=== PATIENT | male | born 1970 | race Caucasian/White ===

== ENCOUNTER 2019-04-23 01:39 | Observation (INO) | payer OTHER ==
[2019-04-23] MEDS ORDERED: Ondansetron 4 MG/2 ML SDV IVPUSH ONE (01:43)
[2019-04-23] MEDS ORDERED: Sodium Chloride 0.9% 1,000 ML IV ONE (01:43)
[2019-04-23] MEDS ORDERED: HYDROmorphone 1 MG/ML Syringe IVPUSH ONE ×2 (01:44→02:05)
--- NOTE | 2019-04-23 01:59 | EDM.PDOC ---
"ED HPI GENERAL MEDICAL PROBLEM - General Chief Complaint: Abdominal Pain Stated Complaint: RIGHT SIDE AROUND STOMACH AREA Time Seen by Provider: 04/23/19 01:45 Source of Information: Reports: Patient History Limitations: Reports: No Limitations - History of Present Illness INITIAL COMMENTS - FREE TEXT/NARRATIVE: ED with c/o severe right sided abdominal pain with onset few hours ago. Nausea, vomited x one on presentation. No diarrhea, Pain constant. Variety of foods for supper. Primary care in [facility]. Onset: Today Right Abdomen Pain Score (Numeric/FACES): 8 - Related Data Allergies Allergy/AdvReac Type Severity Reaction Status Date / Time poison mohsen extract Allergy Cannot Verified 04/23/19 01:48 Remember ED ROS GENERAL - Review of Systems Review Of Systems: See Below Constitutional: Reports: Fever, Chills HEENT: Reports: No Symptoms Respiratory: Reports: No Symptoms Cardiovascular: Reports: No Symptoms GI/Abdominal: Reports: Abdominal Pain, Nausea, Vomiting. Denies: Diarrhea : Reports: No Symptoms Musculoskeletal: Reports: No Symptoms Skin: Reports: No Symptoms Neurological: Reports: No Symptoms Psychiatric: Reports: No Symptoms ED EXAM, GI/ABD - Physical Exam Exam: See Below Exam Limited By: Language Barrier General Appearance: Alert, Moderate Distress Ears: Normal External Exam Nose: Normal Inspection Throat/Mouth: Normal Inspection Head: Atraumatic, Normocephalic Neck: Normal Inspection Respiratory/Chest: No Respiratory Distress, Lungs Clear, Normal Breath Sounds Cardiovascular: Normal Peripheral Pulses, Regular Rate, Rhythm GI/Abdominal Exam: Soft, Tender (RUQ R mid abdomen to lateral below ribs), Abnormal Bowel Sounds (hypoactive), Other (small emesis undigested food). No: Distended, Guarding Back Exam: Normal Inspection Extremities: Normal Inspection, Normal Range of Motion Neurological: Alert, Oriented, Normal Cognition, No Motor/Sensory Deficits Psychiatric: Normal Affect Skin Exam: Warm, Dry, Intact, Pallor. No: Diaphoretic Course - Vital Signs Last Recorded V/S: Last Vital Signs Temp 98.7 F 04/23/19 01:42 Pulse 89 04/23/19 01:42 Resp 19 04/23/19 01:42 BP 143/98 H 04/23/19 01:42 Pulse Ox 99 04/23/19 01:42 - Orders/Labs/Meds Orders: Active Orders 24 hr Category Date Time Status Abdomen Pelvis w Cont [CT] Urgent Exams 04/23/19 02:02 Ordered UA RFX DARYL AND CULT IF INDIC [URIN] Urgent Lab 04/23/19 01:45 Ordered Sodium Chloride 0.9% [Normal Saline] 1,000 ml Med 04/23/19 01:43 Active IV .BOLUS Medication Orders Sodium Chloride (Normal Saline) 1,000 mls @ 500 mls/hr IV .BOLUS ONE Stop: 04/23/19 03:42 Last Admin: 04/23/19 01:50 Dose: 500 mls/hr Labs: Laboratory Tests 04/23/19 04/23/19 04/23/19 Range/Units 01:47 01:47 01:47 WBC 12.7 H (5.0-10.0) 10^3/uL RBC 4.78 (4.6-6.2) 10^6/uL Hgb 14.2 (14.0-18.0) g/dL Hct 42.4 (40.0-54.0) % MCV 88.7 (80-100) fL MCH 29.7 (27.0-34.0) pg MCHC 33.5 (33.0-35.0) g/dL Plt Count 304 (150-450) 10^3/uL Neut % (Auto) 77.4 H (42.2-75.2) % Lymph % (Auto) 15.7 L (20.5-50.1) % [place] % (Auto) 6.3 (2-8) % Eos % (Auto) 0.4 L (1.0-3.0) % Baso % (Auto) 0.2 (0.0-1.0) % Sodium 137 (135-145) mmol/L Potassium 4.5 (3.6-5.0) mmol/L Chloride 102 (101-111) mmol/L Carbon Dioxide 25.0 (21.0-31.0) mmol/L Anion Gap 14.5 BUN 18 (7-18) mg/dL Creatinine 1.1 (0.6-1.3) mg/dL Est Cr Clr Drug Dosing 94.96 mL/min Estimated GFR (MDRD) > 60 BUN/Creatinine Ratio 16.36 Glucose 142 H (74-105) mg/dL Lactic Acid 1.7 (0.5-2.0) mmol/L Calcium 8.9 (8.4-10.2) mg/dl Total Bilirubin 1.0 (0.2-1.0) mg/dL AST 23 (10-42) IU/L ALT 22 (10-60) IU/L Alkaline Phosphatase 75 (42-121) IU/L Total Protein 7.8 (6.7-8.2) g/dl Albumin 4.3 (3.2-5.5) g/dl Globulin 3.5 Albumin/Globulin Ratio 1.23 Amylase 45 (28-100) U/L Lipase 34 (22-51) U/L Meds: Medications Generic Name Dose Route Start Last Admin Trade Name Freq PRN Reason Stop Dose Admin Sodium Chloride 1,000 mls @ 500 mls/hr 04/23/19 01:43 04/23/19 01:50 Normal Saline IV 04/23/19 03:42 500 mls/hr .BOLUS ONE Administration Discontinued Medications Generic Name Dose Route Start Last Admin Trade Name Freq PRN Reason Stop Dose Admin Hydromorphone HCl 1 mg 04/23/19 01:44 04/23/19 01:51 Dilaudid IVPUSH 04/23/19 01:45 1 mg ONETIME ONE Administration Hydromorphone HCl 1 mg 04/23/19 02:05 04/23/19 02:32 Dilaudid IVPUSH 04/23/19 02:06 1 mg ONETIME ONE Administration Iopamidol 100 ml 04/23/19 02:03 04/23/19 02:11 Isovue-300 (61%) IVPUSH 04/23/19 02:04 100 ml ONETIME ONE Administration Ondansetron HCl 4 mg 04/23/19 01:43 04/23/19 01:51 Zofran IVPUSH 04/23/19 01:44 4 mg ONETIME ONE Administration - Radiology Interpretation Free Text/Narrative:: [facility] Final Radiology Report Call: [phone] assistance Online chat: [email or web address] Name: SOLA ARMSTRONG Age: 49Years M Date: 04/23/2019 SSN: -- : [id number] Study: CT ABDOMEN/PELVIS W Requesting Physician: REINALDO CHIU Images: [id number] Addl Studies: Provided Clinical History: Contrast: With Contrast Medium: [id number] Contrast Amount: 100 mL Contrast Method: lac Page 1 of 2 PROCEDURE INFORMATION: Exam: CT Abdomen And Pelvis With Contrast Exam date and time: 04/23/2019 2:25 AM Age: 49 years old Clinical indication: Vomiting and other: Right sided pain--wbc 12,700 TECHNIQUE: Imaging protocol: Computed tomography of the abdomen and pelvis with intravenous contrast. Radiation optimization: All CT scans at this facility use at least one of these dose optimization techniques: automated exposure control; mA and/or kV adjustment per patient size (includes targeted exams where dose is matched to clinical indication); or iterative reconstruction. Contrast material: [id number]; Contrast volume: 100 ml; Contrast route: LAC; COMPARISON: No relevant prior studies available. FINDINGS: Liver: Normal. No mass. Gallbladder and bile ducts: Gallbladder distension but no definite gallstones identified. Pancreas: Normal. No ductal dilation. Spleen: Normal. No splenomegaly. Adrenals: Normal. No mass. Kidneys and ureters: Multiple cortical irregularities to both kidneys consistent with chronic scarring. Stomach and bowel: Gastric distension with content consistent with an ileus. Appendix: Normal appendix right lower quadrant. Intraperitoneal space: Unremarkable. No free air. No significant fluid collection. Vasculature: Unremarkable. No abdominal aortic aneurysm. Lymph nodes: Unremarkable. No enlarged lymph nodes. SOLA ARMSTRONG | Final Radiology Report CONFIDENTIALITY STATEMENT This report is intended only for use by the referring physician, and only in accordance with law. If you received this in error, call [phone]. Page 2 of 2 Bladder: Unremarkable as visualized. Reproductive: Unremarkable as visualized. Bones/joints: Unremarkable. No acute fracture. Soft tissues: Unremarkable. IMPRESSION: 1. Gastric distension with content consistent with an ileus. Please correlate clinically for gastroenteritis. 2. Gallbladder distension but no definite gallstones identified. Gallbladder ultrasound may be helpful in this patient 3. Multiple cortical irregularities to both kidneys consistent with chronic scarring. 4. Normal appendix right lower quadrant. Thank you for allowing us to participate in the care of your patient. Dictated and Authenticated by: Pato Ellington MD - Re-Assessments/Exams Free Text/Narrative Re-Assessment/Exam: 04/23/19 03:[address] Jordi HEMPHILL Hospitalist. Admit Observation. Nausea improved. Pain 05/28. 04/23/19 03:27 Departure - Departure Time of Disposition: 03:28 Disposition: Refer to Observation Condition: Good Clinical Impression: Ileus, Cholecystitis - Discharge Information *PRESCRIPTION DRUG MONITORING PROGRAM REVIEWED*: No *COPY OF PRESCRIPTION DRUG MONITORING REPORT IN PATIENT MIGUE: No Forms: ED Department Discharge Sepsis Event Note - Evaluation Sepsis Screening Result: No Definite Risk - Focused Exam Vital Signs: Vital Signs Temp Pulse Resp BP Pulse Ox 04/23/19 01:42 98.7 F 89 19 143/98 H 99 Date Exam was Performed: 04/23/19 Time Exam was Performed: 03:14 - My Orders Last 24 Hours: My Active Orders 04/23/19 01:43 Sodium Chloride 0.9% [Normal Saline] 1,000 ml IV .BOLUS 04/23/19 01:45 UA RFX DARYL AND CULT IF INDIC [URIN] Urgent 04/23/19 02:02 Abdomen Pelvis w Cont [CT] Urgent - Assessment/Plan Last 24 Hours: My Active Orders 04/23/19 01:43 Sodium Chloride 0.9% [Normal Saline] 1,000 ml IV .BOLUS 04/23/19 01:45 UA RFX DARYL AND CULT IF INDIC [URIN] Urgent 04/23/19 02:02 Abdomen Pelvis w Cont [CT] Urgent"
[2019-04-23] MEDS ORDERED: Iopamidol 612 MG/ML 100 ML Bottle IVPUSH ONE (02:03)
[2019-04-23 02:13] LABS: ANION GAP 14.5; CHLORIDE,CL 102 mmol/L (101-111); SODIUM,NA 137 mmol/L (135-145)
[2019-04-23] MEDS ORDERED: Sodium Chloride 0.9% 10 ML Syringe FLUSH PRN (04:02)
[2019-04-23] MEDS ORDERED: Acetaminophen 325 MG Tab PO PRN (04:02)
[2019-04-23] MEDS ORDERED: Zolpidem 5 MG Tab PO PRN (04:02)
[2019-04-23] MEDS ORDERED: oxyCODONE 5 MG Tab PO PRN (04:02)
[2019-04-23] MEDS ORDERED: Ondansetron 4 MG Tab.DIS PO PRN (04:02)
[2019-04-23] MEDS ORDERED: Ondansetron 4 MG/2 ML SDV IVPUSH PRN (04:02)
[2019-04-23] MEDS ORDERED: Morphine 2 MG/ML Syringe IVPUSH PRN (04:02)
[2019-04-23] MEDS ORDERED: Lactated Ringers 1,000 ML IV SCH (04:15)
--- NOTE | 2019-04-23 04:15 | PCM.HP ---
H&P History of Present Illness - General Date of Service: 04/23/19 Admit Problem/Dx: Admission Diagnosis/Problem Admission Diagnosis/Problem Ileus Source of Information: Patient History Limitations: Reports: No Limitations - History of Present Illness Initial Comments - Free Text/Narative: Gerry Siddiqui is a 49 y.o male with a medical history of hypertension and hyperlipidemia who presented with abdominal pain, nausea and vomiting. Patient was out in his fish house yesterday evening, watching the [employer] with his friends, when he developed sudden epigastric and RUQ abdominal pain and nausea. Pain was constant and non-radiating. He reports having similar right sided abdominal and low back pain occasionally in the past, that would last a few hours and resolve spontaneously. He had an ultrasound for kidney stone 3 months ago that was negative. His symptoms progressed through the night and he thought he had chills. He presented to the ED, where he had one episode of emesis. He denies fever, diarrhea (last BM was yesterday x2 and formed), dysuria, chest pain or shortness of breath. He reported eating "a bunch of stuff ", however, no other person who ate the same food has been sick. Vital signs were BP of 143/98 and pulse of 113. He was afebrile. Labs significant for leukocytosis of 12.7, otherwise rest of CBC, CMP, lipase, and LA were unremarkable. CT scan showed gallbladder distension with no definite gallstones and gastric distension with content consistent with ileus. He received pain meds and zofran. Right Abdomen Pain Score (Numeric/FACES): 8 - Related Data Allergies/Adverse Reactions: Allergies Allergy/AdvReac Type Severity Reaction Status Date / Time poison mohsen extract Allergy Cannot Verified 04/23/19 01:48 Remember Home Medications: Home Meds Aspirin [Halfprin] 81 mg PO BEDTIME 04/23/19 [History] Lisinopril [Zestril] 40 mg PO BEDTIME 04/23/19 [History] atorvaSTATin [Lipitor] 10 mg PO BEDTIME 04/23/19 [History] Past Medical History Cardiovascular History: Reports: High Cholesterol, Hypertension Social & Family History - Family History Family Medical History: Noncontributory - Tobacco Use Smoking Status *Q: Never Smoker - Caffeine Use Caffeine Use: Reports: Coffee, Soda, Tea - Alcohol Use Date of Last Drink: 04/22/19 - Recreational Drug Use Recreational Drug Use: No H&P Review of Systems - Review of Systems: Review Of Systems: See Below General: Reports: Chills, Diaphoresis HEENT: Reports: No Symptoms Pulmonary: Reports: No Symptoms Cardiovascular: Reports: No Symptoms Gastrointestinal: Reports: Abdominal Pain, Nausea, Vomiting Genitourinary: Reports: No Symptoms Musculoskeletal: Reports: No Symptoms Skin: Reports: No Symptoms Psychiatric: Reports: No Symptoms Neurological: Reports: No Symptoms Hematologic/Lymphatic: Reports: No Symptoms Immunologic: Reports: No Symptoms Exam - Exam Exam: See Below - Vital Signs Vital Signs: Last Vital Signs Temp 98.7 F 04/23/19 01:42 Pulse 89 04/23/19 01:42 Resp 19 04/23/19 01:42 BP 143/98 H 04/23/19 01:42 Pulse Ox 99 04/23/19 01:42 Weight: 270 lb - Exam General: Alert, Oriented, 4 HEENT: PERRLA, Hearing Intact, Mucosa Moist & [place], Nares Patent, Normal Nasal Septum, Posterior Pharynx Clear, Conjunctiva Clear, EOMI, EACs Clear, TMs Clear Neck: Supple, Trachea Midline, 2 Lungs: Clear to Auscultation, Normal Respiratory Effort Cardiovascular: Regular Rate, Regular Rhythm GI/Abdominal Exam: Normal Bowel Sounds, Soft, No Organomegaly, No Distention, No Mass, Tender (RUQ and epigastric tenderness diminished due to recent administration of pain meds) (Male) Exam: Deferred Rectal (Males) Exam: Deferred Back Exam: Normal Inspection, Full Range of Motion, NT Extremities: Normal Inspection, Normal Range of Motion, Non-Tender, No Pedal Edema, Normal Capillary Refill Skin: Warm, Dry, Intact Neurological: Cranial Nerves Intact, Reflexes Equal Bilateral Neuro Extensive - Mental Status: Alert, Oriented x3, Normal Mood/Affect, Normal Cognition Neuro Extensive - Motor, Sensory, Reflexes: CN II-XII Intact, Normal Gait, Normal Reflexes Psychiatric: Alert, Normal Affect, Normal Mood - Patient Data Lab Results Last 24 hrs: Laboratory Results - last 24 hr 04/23/19 04/23/19 04/23/19 Range/Units 01:47 01:47 01:47 WBC 12.7 H (5.0-10.0) 10^3/uL RBC 4.78 (4.6-6.2) 10^6/uL Hgb 14.2 (14.0-18.0) g/dL Hct 42.4 (40.0-54.0) % MCV 88.7 (80-100) fL MCH 29.7 (27.0-34.0) pg MCHC 33.5 (33.0-35.0) g/dL Plt Count 304 (150-450) 10^3/uL Neut % (Auto) 77.4 H (42.2-75.2) % Lymph % (Auto) 15.7 L (20.5-50.1) % [place] % (Auto) 6.3 (2-8) % Eos % (Auto) 0.4 L (1.0-3.0) % Baso % (Auto) 0.2 (0.0-1.0) % Sodium 137 (135-145) mmol/L Potassium 4.5 (3.6-5.0) mmol/L Chloride 102 (101-111) mmol/L Carbon Dioxide 25.0 (21.0-31.0) mmol/L Anion Gap 14.5 BUN 18 (7-18) mg/dL Creatinine 1.1 (0.6-1.3) mg/dL Est Cr Clr Drug Dosing 94.96 mL/min Estimated GFR (MDRD) > 60 BUN/Creatinine Ratio 16.36 Glucose 142 H (74-105) mg/dL Lactic Acid 1.7 (0.5-2.0) mmol/L Calcium 8.9 (8.4-10.2) mg/dl Total Bilirubin 1.0 (0.2-1.0) mg/dL AST 23 (10-42) IU/L ALT 22 (10-60) IU/L Alkaline Phosphatase 75 (42-121) IU/L Total Protein 7.8 (6.7-8.2) g/dl Albumin 4.3 (3.2-5.5) g/dl Globulin 3.5 Albumin/Globulin Ratio 1.23 Amylase 45 (28-100) U/L Lipase 34 (22-51) U/L Result Diagrams: 04/23/19 01:47 04/23/19 01:47 Problem List Initiated/Reviewed/Updated: Yes Orders Last 24hrs: Active Orders 24 hr Category Date Time Status Admission Diagnosis [ADT] Stat ADT 04/23/19 03:21 Ordered Admission Status [Patient Status] [ADT] Routine ADT 04/23/19 03:21 Active Patient Status [ADT] Routine ADT 04/23/19 04:02 Ordered Oxygen Therapy [RC] PRN Care 04/23/19 04:02 Ordered Up ad Meaghan [RC] ASDIRECTED Care 04/23/19 04:02 Ordered VTE/DVT Education [RC] PER UNIT ROUTINE Care 04/23/19 04:02 Ordered Vital Signs [RC] Q4H Care 04/23/19 04:02 Ordered Nothing per Oral Now Diet [DIET] Diet 04/23/19 Breakfast Ordered Abdomen Pelvis w Cont [CT] Urgent Exams 04/23/19 02:02 Taken CBC W/O DIFF,HEMOGRAM [HEME] Routine Lab 04/23/19 10:00 Ordered COMPREHENSIVE METABOLIC PN,CMP [CHEM] Routine Lab 04/23/19 10:00 Ordered MAGNESIUM [CHEM] Routine Lab 04/23/19 10:00 Ordered UA RFX DARYL AND CULT IF INDIC [URIN] Urgent Lab 04/23/19 01:45 Ordered Acetaminophen [Tylenol] Med 04/23/19 04:02 Ordered 650 mg PO Q4H PRN Enoxaparin [Lovenox] Med 04/23/19 09:00 Ordered 30 mg SUBCUT DAILY Lactated Ringers @ 125 MLS/HR(1000ml) Med 04/23/19 04:15 Ordered Lactated Ringers [Ringers, Lactated] 1,000 ml IV ASDIRECTED Morphine Med 04/23/19 04:02 Ordered 2 mg IVPUSH Q2H PRN Ondansetron [Zofran ODT] Med 04/23/19 04:02 Ordered 4 mg PO Q4H PRN Ondansetron [Zofran] Med 04/23/19 04:02 Ordered 4 mg IVPUSH Q4H PRN Sodium Chloride 0.9% [Saline Flush] Med 04/23/19 04:02 Ordered 10 ml FLUSH ASDIRECTED PRN Zolpidem [Ambien] Med 04/23/19 04:02 Ordered 5 mg PO BEDTIME PRN oxyCODONE Med 04/23/19 04:02 Ordered 5 mg PO Q4H PRN Saline Lock Insert [OM.PC] Routine Oth 04/23/19 04:02 Ordered Resuscitation Status Routine Resus Stat 04/23/19 04:02 Ordered Medication Orders Acetaminophen (Tylenol) 650 mg PO Q4H PRN PRN Reason: Pain (Mild 1-3)/fever Enoxaparin Sodium (Lovenox) 30 mg SUBCUT DAILY EMILIANA Lactated Ringer's (Ringers, Lactated) 1,000 mls @ 125 mls/hr IV ASDIRECTED EMILIANA Morphine Sulfate (Morphine) 2 mg IVPUSH Q2H PRN PRN Reason: Pain (severe 7-10) Ondansetron HCl (Zofran Odt) 4 mg PO Q4H PRN PRN Reason: nausea, able to take PO Ondansetron HCl (Zofran) 4 mg IVPUSH Q4H PRN PRN Reason: Nausea/Vomiting Oxycodone HCl (Oxycodone) 5 mg PO Q4H PRN PRN Reason: Pain (moderate 4-6) Sodium Chloride (Saline Flush) 10 ml FLUSH ASDIRECTED PRN PRN Reason: Keep Vein Open Zolpidem Tartrate (Ambien) 5 mg PO BEDTIME PRN PRN Reason: Sleep Assessment/Plan Comment:: Ileus Probable gastroenteritis Dilated gall bladder Patient presented with acute onset RUQ and epigastric abdominal pain and emesis. Labs showing leukocytosis of 12.7, otherwise normal. Lipase and LFTs within normal limits. CT scan suggesting ileus and gallbladder distension. At this point suspect viral developing gastroenteritis vs/leading to ileus. Other differentials to watch out for include cholecystitis/cholangitis, pancreatitis and pyelonephritis, though at this point, labs do not support. Dilated gallbladder could be due to emesis and intraluminal process. - Patient opting for minimal and staged care as needed for now - If repeat emesis, will pass NGT to LIS - Repeat CBC, CMP and Magnesium in late morning - Monitor for fever to commence antibiotics micaela - NPO for now - MIVF LR at 125 cc/h - Consider US of gallbladder to evaluate for radiolucent stones and sludge Hypertension - Hold lisinopril for now - Blood pressure within acceptable limits Hyperlipidemia - Hold atorvastatin for now
[2019-04-23] MEDS ORDERED: Enoxaparin 40 MG/0.4 ML Syringe SUBCUT SCH (09:00)
[2019-04-23 10:39] LABS: ANION GAP 12.2; CHLORIDE,CL 105 mmol/L (101-111); SODIUM,NA 138 mmol/L (135-145)
--- NOTE | 2019-04-23 12:39 | PCM.DCSUM1 ---
Discharge Summary - Hospital Course Free Text/Narrative:: Gerry Siddiqui is a 49 y.o male with a medical history of hypertension and hyperlipidemia who presented with sudden epigastric and RUQ abdominal pain, nausea and vomiting x1. Vital signs were unremarkable. Initial labs significant for leukocytosis of 12.7, otherwise rest of CBC, CMP, lipase, and LA were unremarkable. CT scan showed gallbladder distension with no definite gallstones and gastric distension with content consistent with ileus. His symptoms improved with pain meds, IVF and zofran. he received no antibiotics. Patient tolerated regular diet and was passing gas prior to discharge. Repeat labs showed resolution of leukocytosis and no other significant abnormality. Patient probably had gastroenteritis with ileus. Unsure what to make of his gallbladder distension in the setting of history acute on chronic RUQ with normal LFTs and lipase. I discussed with patient, and per his wishes, he will follow up with his primary care doctor to consider a RUQ ultrasound. He will report to an ED if symptoms return. Discharge diagnoses Ileus Probable gastroenteritis Dilated gall bladder Hypertension Hyperlipidemia - Discharge Data Discharge Date: 04/23/19 Discharge Disposition: Home, Self-Care 01 Condition: Good - Referral to Home Health Primary Care Physician: PCP Not In Area - Discharge Plan *PRESCRIPTION DRUG MONITORING PROGRAM REVIEWED*: Not Applicable *COPY OF PRESCRIPTION DRUG MONITORING REPORT IN PATIENT MIGUE: Not Applicable Home Medications: Home Meds Aspirin [Halfprin] 81 mg PO BEDTIME 04/23/19 [History] Lisinopril [Zestril] 40 mg PO BEDTIME 04/23/19 [History] atorvaSTATin [Lipitor] 10 mg PO BEDTIME 04/23/19 [History] Oxygen Therapy Mode: Room Air Patient Handouts: Ileus - Discharge Summary/Plan Comment DC Time >30 min.: No - General Info Functional Status: Reports: Pain Controlled - Review of Systems General: Reports: No Symptoms HEENT: Reports: No Symptoms Pulmonary: Reports: No Symptoms Cardiovascular: Reports: No Symptoms Gastrointestinal: Reports: No Symptoms Genitourinary: Reports: No Symptoms Musculoskeletal: Reports: No Symptoms Skin: Reports: No Symptoms Neurological: Reports: No Symptoms Psychiatric: Reports: No Symptoms - Patient Data Vitals - Most Recent: Last Vital Signs Temp 97.6 F 04/23/19 11:51 Pulse 75 04/23/19 11:51 Resp 20 04/23/19 11:51 BP 154/89 H 04/23/19 11:51 Pulse Ox 98 04/23/19 11:51 Weight - Most Recent: 270 lb I&O - Last 24 hours: Intake & Output 04/22/19 04/23/19 04/23/19 22:59 06:59 14:59 Output Total 1000 Balance -1000 Lab Results - Last 24 hrs: Laboratory Results - last 24 hr 04/23/19 04/23/19 04/23/19 Range/Units 01:47 01:47 01:47 WBC 12.7 H (5.0-10.0) 10^3/uL RBC 4.78 (4.6-6.2) 10^6/uL Hgb 14.2 (14.0-18.0) g/dL Hct 42.4 (40.0-54.0) % MCV 88.7 (80-100) fL MCH 29.7 (27.0-34.0) pg MCHC 33.5 (33.0-35.0) g/dL Plt Count 304 (150-450) 10^3/uL Neut % (Auto) 77.4 H (42.2-75.2) % Lymph % (Auto) 15.7 L (20.5-50.1) % [place] % (Auto) 6.3 (2-8) % Eos % (Auto) 0.4 L (1.0-3.0) % Baso % (Auto) 0.2 (0.0-1.0) % Sodium 137 (135-145) mmol/L Potassium 4.5 (3.6-5.0) mmol/L Chloride 102 (101-111) mmol/L Carbon Dioxide 25.0 (21.0-31.0) mmol/L Anion Gap 14.5 BUN 18 (7-18) mg/dL Creatinine 1.1 (0.6-1.3) mg/dL Est Cr Clr Drug Dosing 94.96 mL/min Estimated GFR (MDRD) > 60 BUN/Creatinine Ratio 16.36 Glucose 142 H (74-105) mg/dL Lactic Acid 1.7 (0.5-2.0) mmol/L Calcium 8.9 (8.4-10.2) mg/dl Magnesium (1.8-2.5) mg/dL Total Bilirubin 1.0 (0.2-1.0) mg/dL AST 23 (10-42) IU/L ALT 22 (10-60) IU/L Alkaline Phosphatase 75 (42-121) IU/L Total Protein 7.8 (6.7-8.2) g/dl Albumin 4.3 (3.2-5.5) g/dl Globulin 3.5 Albumin/Globulin Ratio 1.23 Amylase 45 (28-100) U/L Lipase 34 (22-51) U/L 04/23/19 04/23/19 Range/Units 10:15 10:15 WBC 10.4 H (5.0-10.0) 10^3/uL RBC 4.41 L (4.6-6.2) 10^6/uL Hgb 13.3 L (14.0-18.0) g/dL Hct 39.1 L (40.0-54.0) % MCV 88.7 (80-100) fL MCH 30.2 (27.0-34.0) pg MCHC 34.0 (33.0-35.0) g/dL Plt Count 246 (150-450) 10^3/uL Neut % (Auto) (42.2-75.2) % Lymph % (Auto) (20.5-50.1) % [place] % (Auto) (2-8) % Eos % (Auto) (1.0-3.0) % Baso % (Auto) (0.0-1.0) % Sodium 138 (135-145) mmol/L Potassium 4.2 (3.6-5.0) mmol/L Chloride 105 (101-111) mmol/L Carbon Dioxide 25.0 (21.0-31.0) mmol/L Anion Gap 12.2 BUN 15 (7-18) mg/dL Creatinine 0.9 (0.6-1.3) mg/dL Est Cr Clr Drug Dosing 116.06 mL/min Estimated GFR (MDRD) > 60 BUN/Creatinine Ratio 16.66 Glucose 97 (74-105) mg/dL Lactic Acid (0.5-2.0) mmol/L Calcium 8.6 (8.4-10.2) mg/dl Magnesium 2.0 (1.8-2.5) mg/dL Total Bilirubin 0.7 (0.2-1.0) mg/dL AST 19 (10-42) IU/L ALT 20 (10-60) IU/L Alkaline Phosphatase 68 (42-121) IU/L Total Protein 6.8 (6.7-8.2) g/dl Albumin 3.7 (3.2-5.5) g/dl Globulin 3.1 Albumin/Globulin Ratio 1.19 Amylase (28-100) U/L Lipase (22-51) U/L Med Orders - Current: Current Medications Acetaminophen (Tylenol) 650 mg PO Q4H PRN PRN Reason: Pain (Mild 1-3)/fever Enoxaparin Sodium (Lovenox) 40 mg SUBCUT DAILY [facility] Last Admin: 04/23/19 08:29 Dose: Not Given Lactated Ringer's (Ringers, Lactated) 1,000 mls @ 125 mls/hr IV ASDIRECTED [facility] Last Admin: 04/23/19 04:47 Dose: 125 mls/hr Morphine Sulfate (Morphine) 2 mg IVPUSH Q2H PRN PRN Reason: Pain (severe 7-10) Ondansetron HCl (Zofran Odt) 4 mg PO Q4H PRN PRN Reason: nausea, able to take PO Ondansetron HCl (Zofran) 4 mg IVPUSH Q4H PRN PRN Reason: Nausea/Vomiting Oxycodone HCl (Oxycodone) 5 mg PO Q4H PRN PRN Reason: Pain (moderate 4-6) Sodium Chloride (Saline Flush) 10 ml FLUSH ASDIRECTED PRN PRN Reason: Keep Vein Open Zolpidem Tartrate (Ambien) 5 mg PO BEDTIME PRN PRN Reason: Sleep Discontinued Medications Hydromorphone HCl (Dilaudid) 1 mg IVPUSH ONETIME ONE Stop: 04/23/19 01:45 Last Admin: 04/23/19 01:51 Dose: 1 mg Hydromorphone HCl (Dilaudid) 1 mg IVPUSH ONETIME ONE Stop: 04/23/19 02:06 Last Admin: 04/23/19 02:32 Dose: 1 mg Sodium Chloride (Normal Saline) 1,000 mls @ 500 mls/hr IV .BOLUS ONE Stop: 04/23/19 03:42 Last Admin: 04/23/19 01:50 Dose: 500 mls/hr Iopamidol (Isovue-300 (61%)) 100 ml IVPUSH ONETIME ONE Stop: 04/23/19 02:04 Last Admin: 04/23/19 02:11 Dose: 100 ml Ondansetron HCl (Zofran) 4 mg IVPUSH ONETIME ONE Stop: 04/23/19 01:44 Last Admin: 04/23/19 01:51 Dose: 4 mg - Exam General: Reports: Alert, Oriented HEENT: Reports: Pupils Equal, Pupils Reactive, EOMI, Mucous Membr. Moist/[place]ck: Reports: Supple Lungs: Reports: Clear to Auscultation, Normal Respiratory Effort Cardiovascular: Reports: Regular Rate, Regular Rhythm GI/Abdominal Exam: Normal Bowel Sounds, Soft, Non-Tender, No Organomegaly, No Distention, No Abnormal Bruit, No Mass, Pelvis Stable (Male) Exam: Deferred Rectal (Males) Exam: Deferred Back Exam: Reports: Normal Inspection, Full Range of Motion Extremities: Normal Inspection, Normal Range of Motion, Non-Tender, No Pedal Edema, Normal Capillary Refill Skin: Reports: Warm, Dry Psy/Mental Status: Reports: Other (None)
== END 2019-04-23 13:15 | disposition home or self-care (01) ==
LOC: DL.ED 01:39 → DL.MS 03:21 → DL.ED 03:26
PROVIDERS: ADMIT Internal Medicine; ATTEND Internal Medicine
DX: K56.7 Ileus, unspecified (principal); K82.8 Other specified diseases of gallbladder; D72.829 Elevated white blood cell count, unspecified; I10 Essential (primary) hypertension; E78.5 Hyperlipidemia, unspecified; E78.00 Pure hypercholesterolemia, unspecified; Z88.8 Allergy status to other drugs, medicaments and biological substances
CPT/HCPCS: 36415; 74177; 80053; 82150; 83605; 83690; 83735; 85025; 85027; J1170; J2405; J7030; J7120; Q9967